=== PATIENT | female | born 1955 | race Caucasian/White ===

== ENCOUNTER → 2017-06-03 | Day surgery (SDC) | payer OTHER ==
[~2017-06-03] MED LIST: ADVAIR 250-501 EACH INH; AMITIZA8 MCG PO; DIAZEPAM10 MG PO; FENTANYL CITRATE/PF 100MCG/2 ML INJ ONE; IRBESARTAN150 MG PO; JENTADUETO 2.51 EAC2 PO; LIDOCAINE HCL 2% LOCAL INJ 5 ML SDV VIAL INJ ONE; MIDAZOLAM HCL 2 MG/2 ML VIAL ONE; MONTELUKAST SOD10 MG PO; NEXIUM40 M1 PO; PANTOPRAZOLE SO40 MG PO; PROAIR HFA INH8.5 GM INH; PROPOFOL IV EMULSION 10 MG/ML 50 ML VIAL ONE; SIMVASTATIN20 MG PO; SOMA350 MG PO; TRAMADOL-ACETAMI1 EA PO
--- NOTE | 2017-06-03 13:47 | Operative Report ---
DATE OF PROCEDURE: June 03, 2017 REFERRING PHYSICIAN: Ronny Rutherford MD PROCEDURE PERFORMED: Esophagogastroduodenoscopy with esophageal dilatation and biopsies. INDICATIONS FOR ESOPHAGOGASTRODUODENOSCOPY: Dysphagia to solids and liquids, history of heartburn and indigestion. MEDICATION: Patient was done under MAC. Please see anesthesiologist's note. PROCEDURE: With patient in left lateral decubitus position, flexible fiberoptic Olympus gastroscope was introduced into the esophagus under direct visualization without any difficulty. There was some patchy erythema noted in distal esophagus. A minute tongue of velvety red mucosa was noted to extend proximally from the GE junction and biopsies were obtained to rule out Otoole's. There was a mild stricture at the GE junction that was dilated to size 52-Turkmen Hernandez. The scope was then advanced with ease into the stomach traversing a small sliding hiatal hernia. Mucosa overlying the antrum and the body revealed some patchy intense erythema and moderate edema, and biopsies were obtained and sent to stain for H. pylori. Submucosal nodules also were noted mid-body along the lesser curvature and biopsies were obtained. The pylorus was of normal contour and shape, was intubated with ease, and the scope was advanced all the way to the 2nd portion of the duodenum. The scope was then withdrawn slowly. Mucosa overlying the proximal 2nd portion and duodenal bulb appeared to be within normal limits. The scope was then withdrawn back into the stomach and retroflexion mucosa overlying the fundus and the cardia appeared to be within normal limits. The scope was then straightened out. The stomach was decompressed. Scope was subsequently withdrawn. Patient tolerated the procedure well. IMPRESSION 1. Mild distal esophagitis. 2. Rule out Otoole's esophagus. 3. Esophageal stricture, gastroesophageal junction dilated to size 52-Turkmen Hernandez. 4. Small sliding hiatal hernia. 5. Gastritis, biopsied and biopsies sent to stain for H. Pylori. 6. Submucosal nodules mid-body lesser curvature, biopsied. PLAN: Follow up histology. Continue Protonix 40 mg 1 p.o. a.c. b.i.d.. Job#: [id number] COREY cc:Ronny Rutherford MD
== END | disposition home or self-care (01) ==
LOC: OR 09:15
PROVIDERS: ATTEND Internal Medicine Gastroenterology
DX: K22.2 Esophageal obstruction (principal); K29.50 Unspecified chronic gastritis without bleeding; K21.0 Gastro-esophageal reflux disease with esophagitis; K44.9 Diaphragmatic hernia without obstruction or gangrene; K31.89 Other diseases of stomach and duodenum; K58.9 Irritable bowel syndrome, unspecified; I10 Essential (primary) hypertension; J45.909 Unspecified asthma, uncomplicated; E11.9 Type 2 diabetes mellitus without complications; Z01.810 Encounter for preprocedural cardiovascular examination; Z68.29 Body mass index [BMI] 29.0-29.9, adult
CPT/HCPCS: 36415; 43239; 43450; 82948; 93005; J2001; J2250

== ENCOUNTER → 2018-05-19 | Day surgery (SDC) | payer OTHER ==
[2018-05-14 12:26] LABS: BASOPHILS # (AUTO) 0.1 (0.0-0.1); BASOPHILS % 0.7 % (0.0-1.0); EOSINOPHILS # (AUTO) 0.2 (0.0-0.4); EOSINOPHILS % 2.6 % (0.0-6.0); HEMATOCRIT 35.9 % (34.2-44.1); HEMOGLOBIN 10.5 g/dL (12.0-16.0); LYMPHOCYTES # (AUTO) 2.6 (1.0-3.2); LYMPHOCYTES % 29.2 % (18.0-39.1); MEAN CORPUSCULAR HEMOGLOBIN 23.7 pg (28-32); MEAN CORPUSCULAR HGB CONC 29.2 g/dL (31-35); MONOCYTES # (AUTO) 0.5 (0.2-0.8); MONOCYTES % 5.4 % (4.4-11.3); NEUTROPHILS # (AUTO) 5.4 (2.1-6.9); NEUTROPHILS % 61.9 % (38.7-80.0); PLATELET COUNT 305 x10e3/uL (140-360); RED BLOOD COUNT 4.43 x10e6/uL (3.6-5.1); RED CELL DISTRIBUTION WIDTH 15.5 % (11.7-14.4)
[~2018-05-19] MED LIST changes: +KOMBIGLYZE XR1 EAC2 PO; +ONDANSETRON HCL INJ 2MG/ML 2ML 2 MG/ML VIAL ONE; +SYMBICORT 16010.2 GM INH
--- OUTSIDE RECORDS SUMMARY | 2018-05-19 06:18 | XMS REPORT ---
Author Author [facility] Address Unknown Phone Unavailable Care Team Providers Care Asphalt Plant Worker Name Role Phone ANNIKA MCCURDY Unavailable Unavailable Problems This patient has no known problems. Allergies, Adverse Reactions, Alerts This patient has no known allergies or adverse reactions. Medications This patient has no known medications. Results Test Description Test Time Test Comments Text Results Atomic Results Result Comments POCT-GLUCOSE METER 2017-07-18 09:07:00 POC-GLUCOSE METER (SAVANAH) (test etny=1994) 125 mg/dL 70-[address] [facility] [address] [place] [id number]
--- OUTSIDE RECORDS SUMMARY | 2018-05-19 06:18 | XMS REPORT | Clinical Summary ---
Author Author MARIO [facility] Address Unknown Phone Unavailable Care Team Providers Care Trade Union Secretary Name Role Phone Ronny Rutherford PCP Allergies Comments Active Allergy Reactions Severity Noted Date Cephalexin Hives 04/20/2016 rash Latex Swelling 04/20/2016 Medications End Date Status Medication Sig Dispensed Refills Start Date Active DIAZEPAM ORAL Take by mouth 0 nightly . Active pantoprazole (PROTONIX) Take 40 mg by 0 40 MG tablet mouth daily. Active irbesartan (AVAPRO) 150 Take 150 mg 0 MG tablet by mouth nightly. Active simvastatin (ZOCOR) 20 MG Take 20 mg by 0 tablet mouth nightly. Active ALBUTEROL SULFATE (PROAIR Inhale by 0 HFA INHL) mouth via inhaler as needed . Active linagliptin-metFORMIN Take 1 tablet 0 (JENTADUETO XR) 2.5-1,000 by mouth 2 mg TBph (two) times daily . Active MONTELUKAST SODIUM Take by 0 (SINGULAIR ORAL) mouth. Active ondansetron (ZOFRAN-ODT) Take 8 mg by 0 8 MG disintegrating mouth 2 (two) tablet times daily as needed for Nausea. 07/18/2017 Discontinued diclofenac (VOLTAREN) 25 Take 25 mg by 0 MG EC tablet mouth 2 (two) times daily. 07/18/2017 Discontinued sucralfate (CARAFATE) 1 Take 1 g by 0 gram tablet mouth 4 (four) times daily. 07/14/2017 Discontinued Missing or Non-Formulary 0 Medication 07/18/2017 Discontinued traMADol (ULTRAM-ER) 100 Take 100 mg 0 MG 24 hr tablet by mouth daily. Active Problems Not on file Encounters Care Team Description Date Type Specialty Marvel Freeman MD 07/18/2017 Anesthesia Gastroenterology Event Rodrick Lopez MD UPPER ENDOSCOPY,FNA W/ULTRASOUND 07/18/2017 Surgery Gastroenterology Rodrick Lopez MD 07/18/2017 Hospital Gastroenterology Encounter Resource, [facility] Phone 07/14/2017 Hospital Pre-Admission Testing Encounter after 05/18/2017 Social History Date Tobacco Use Types Packs/Day Years Used Never Smoker Smokeless Tobacco: Never Used Alcohol Use Drinks/Week oz/Week Comments No Sex Assigned at Date Recorded Not on file Industry Job Start Date Occupation Not on file Not on file Not on file Travel End Travel History Travel Start No recent travel history available. Last Filed Vital Signs Time Taken Vital Sign Reading 07/18/2017 10:55 AM CDT Blood Pressure 112/77 07/18/2017 10:41 AM CDT Pulse 81 07/18/2017 10:55 AM CDT Temperature 36.1 C (97 F) 07/18/2017 10:55 AM CDT Respiratory Rate 18 07/18/2017 10:41 AM CDT Oxygen Saturation 96% - Inhaled Oxygen - Concentration 07/18/2017 9:10 AM CDT Weight 74.6 kg (164 lb 6.4 oz) 07/18/2017 9:10 AM CDT Height 152.4 cm (5') 07/18/2017 9:10 AM CDT Body Mass Index 32.11 Plan of Treatment Not on file Procedures Comments Procedure Name Priority Date/Time Associated Diagnosis REPORT OF PROCEDURE - 07/18/2017 ENDOSCOPY URL 10:54 AM CDT UPPER ENDOSCOPY,FNA 07/18/2017 Gastric nodule W/ULTRASOUND 9:30 AM CDT Special Needs (LINEAR SCOPE) POCT-GLUCOSE METER Routine 07/18/2017 9:05 AM CDT after 05/18/2017 Results * REPORT OF PROCEDURE - ENDOSCOPY URL (07/18/2017 10:54 AM CDT) Narrative Performed At * POC-Glucose meter (07/18/2017 9:05 AM CDT) POC-Glucose Meter 125 (H)Comment: TESTED AT 70 - 110 mg/dL [facility] [address] [facility] [id number] Specimen Blood Performing Organization Address City/State/Zipcode Phone Number [facility] [address] [place] [address] [facility] after 05/18/2017 Insurance Payer Benefit Subscriber ID Type Phone Address Plan / Group [employer] - MGD CARE CIGNA xxxxxxxxxxx HMO/POS HMO/POS/OP EN ACCESS
[2018-05-19 09:50] VITALS: BP 136/92
[2018-05-19 10:32] LABS: % IRON SATURATION 10 % (15-50); IRON 36 ug/dL (50-170); TOTAL IRON BINDING CAPACITY 356 ug/dL (261-478); TRANSFERRIN 254 mg/dL (180-382)
[2018-05-19 11:03] LABS: FOLATE 12.6 ng/mL (7.0-15.4)
--- NOTE | 2018-05-19 16:16 | Operative Report ---
DATE OF PROCEDURE: 05/19/2018 SURGEON: Jewel Delgadillo MD PROCEDURES: Esophagogastroduodenoscopy with esophageal dilatation and biopsies and colonoscopy with polypectomy. INDICATIONS FOR EGD: Dysphagia, anemia. INDICATIONS FOR COLONOSCOPY: Surveillance colonoscopy, personal history of colon polyps, anemia. MEDICATIONS: The patient was done under MAC. Please see anesthesiologist's note. PROCEDURE IN DETAIL: With the patient in the left lateral decubitus position, a flexible fiberoptic Olympus gastroscope was introduced into the esophagus under direct visualization without any difficulty. There was some patchy erythema noted in the distal esophagus. A minute tongue of velvety red mucosa was noted to extend proximally from the GE junction and biopsies were obtained in the recent past to rule out Otoole's and no biopsies were obtained at this time. The scope was then advanced with ease into the stomach traversing a mild stricture at the GE junction that was dilated to size 52-Austrian Hernandez. There was also a small sliding hiatal hernia. The mucosa overlying the antrum revealed some patchy intense erythema and moderate edema and biopsies were obtained from the antrum and the body. Submucosal nodules were noted in the upper body and those were also biopsied. Pylorus was intubated with ease and the scope was advanced all the way to the second portion of the duodenum. Biopsies were obtained from the proximal second portion to rule out sprue as well as from the duodenal bulb. The scope was then withdrawn back into the stomach and retroflexed and mucosa overlying the fundus and cardia appeared to be within normal limits. The scope was then straightened out. The stomach was decompressed. The scope was subsequently withdrawn. The patient tolerated the procedure well. IMPRESSION: 1. Distal esophagitis, mild. 2. ? Otoole's esophagus. 3. Mild stricture at gastroesophageal junction, dilated to size 52-Austrian Hernandez. 4. Small sliding hiatal hernia. 5. Gastritis, biopsied. Biopsies sent to stain for Helicobacter pylori. 6. Submucosal nodule, upper body, biopsied. 7. Rule out sprue. PLAN: Followup histology. Continue Protonix 40 mg one p.o. a.c. b.i.d. Add Carafate 1 g p.o. a.c. t.i.d. and at bedtime. PROCEDURE IN DETAIL: The patient was then turned around after adequate lubrication of the anal canal, a flexible fiberoptic Olympus colonoscope was inserted into the rectum and advanced all the way to the cecum. The scope was then withdrawn slowly and mucosa overlying the cecum, ascending colon, transverse colon, and descending colon appeared to be within normal limits. Diverticular disease was noted to involve the sigmoid colon. Four polyps were hot biopsied from the sigmoid colon. One polyp was hot biopsied from the rectum. The scope was then retroflexed into the distal rectum and the area around the dentate line appeared to be within normal limits. The scope was then straightened out and it was subsequently withdrawn. The patient tolerated the procedure well. IMPRESSION: 1. Diverticulosis. 2. Sigmoid colon polyps x4, hot biopsied. 3. Rectal polyp x1, hot biopsied. PLAN: Follow up histology. Initiate high-fiber, low-fat diet. Initiate high-fiber supplement. The patient might benefit from a followup colonoscopy in 3 to 5 years. Findings do no necessarily explain the patient's anemia. She will need small bowel series and if negative, she might benefit from an enteroscopy. MD SANDRA Arriaza/JOSE ALEJANDRO /[id number] cc: Ronny Rutherford MD
== END | disposition home or self-care (01) ==
LOC: OR 06:16
PROVIDERS: ATTEND Internal Medicine Gastroenterology
DX: Z12.11 Encounter for screening for malignant neoplasm of colon (principal); Z86.010 Personal history of colon polyps; R13.10 Dysphagia, unspecified; K20.9 Esophagitis, unspecified; D64.9 Anemia, unspecified; Z01.810 Encounter for preprocedural cardiovascular examination; Z01.812 Encounter for preprocedural laboratory examination; Z87.891 Personal history of nicotine dependence; K29.70 Gastritis, unspecified, without bleeding; Z87.19 Personal history of other diseases of the digestive system; I10 Essential (primary) hypertension; R13.19 Other dysphagia; K59.09 Other constipation; Z68.31 Body mass index [BMI] 31.0-31.9, adult; Z88.1 Allergy status to other antibiotic agents; Z91.040 Latex allergy status; K22.2 Esophageal obstruction; K44.9 Diaphragmatic hernia without obstruction or gangrene; K57.30 Diverticulosis of large intestine without perforation or abscess without bleeding; K63.5 Polyp of colon; K62.1 Rectal polyp; K31.89 Other diseases of stomach and duodenum
CPT/HCPCS: 36415 ×2; 43239; 43450; 45384; 82607; 82746; 82948; 83540; 84466; 85025; 85045; 93005; J2001; J2250; J2405; J2704

== ENCOUNTER 2019-04-16 10:58 | Inpatient (IN) | payer BC, OTHER ==
[~2019-04-16] VITALS: Ht 152.4 cm; Wt 69.9 kg
[~2019-04-16 10:58] MED LIST changes: -FENTANYL CITRATE/PF 100MCG/2 ML INJ ONE; -LIDOCAINE HCL 2% LOCAL INJ 5 ML SDV VIAL INJ ONE; -MIDAZOLAM HCL 2 MG/2 ML VIAL ONE; -ONDANSETRON HCL INJ 2MG/ML 2ML 2 MG/ML VIAL ONE; -PROPOFOL IV EMULSION 10 MG/ML 50 ML VIAL ONE
[2019-04-16] MEDS ORDERED: ONDANSETRON HCL INJ 2MG/ML 2ML 2 MG/ML VIAL IV STA ×2 (11:21→14:42)
[2019-04-16] MEDS ORDERED: SODIUM CHLORIDE 0.9% 1000ML 1,000 ML IV STA (11:21)
[2019-04-16] MEDS ORDERED: KETOROLAC TROMETHAMINE 30 MG/ML VIAL IV STA (11:21)
[2019-04-16] MEDS ORDERED: MORPHINE SULFATE 2 MG/ML SYR 1ML IV STA (11:21)
[2019-04-16 11:54] LABS: COLOR,URINE YELLOW (YELLOW)
[2019-04-16 11:55] LABS: CLARITY,URINE CLEAR (CLEAR); LEUKOCYTE ESTERASE ,URINE MODERATE (NEGATIVE); NITRITE,URINE POSITIVE (NEGATIVE); PROTEIN,URINE DIPSTICK NEGATIVE (NEGATIVE)
[2019-04-16 11:56] LABS: BILIRUBIN,URINE SMALL (NEGATIVE); KETONES,URINE NEGATIVE (NEGATIVE); URINE UROBILINOGEN 0.2 mg/dL (0.2 - 1)
[2019-04-16 12:06] LABS: BACTERIA,URINE FEW /HPF; EPITHELIAL CELLS,URINE FEW /LPF
--- NOTE | 2019-04-16 12:44 | Diagnostic Imaging Report ---
EXAMINATION: CT of the abdomen and pelvis without contrast. TECHNIQUE: Spiral CT images of the abdomen and pelvis were performed from the lung bases to the lesser trochanters. No intravenous contrast was given per renal stone protocol. Coronal and sagittal reformatted images were obtained. COMPARISON: None. CLINICAL HISTORY:Right flank pain, urinary frequency DISCUSSION: ABSENCE OF INTRAVENOUS CONTRAST DECREASES SENSITIVITY FOR DETECTION OF FOCAL LESIONS AND VASCULAR PATHOLOGY. ABDOMEN/PELVIS: LOWER THORAX: Unremarkable. HEPATOBILIARY:No focal hepatic lesion or intrahepatic biliary dilatation. The gallbladder has been removed. SPLEEN: No splenomegaly. PANCREAS: No focal masses or ductal dilatation. ADRENALS: No adrenal nodules. KIDNEYS/URETERS: Punctate nonobstructing left upper pole renal calculus. 3 mm nonobstructing left lower pole renal calculus. 4 mm distal right ureteral calculus results in moderate hydroureteronephrosis and perinephric fat stranding. No left ureteral or bladder calculi. PELVIC ORGANS/BLADDER: Urinary bladder is unremarkable. Uterus is not identified and has presumably been removed. No adnexal mass. PERITONEUM/RETROPERITONEUM: No ascites. No pneumoperitoneum or LYMPH NODES: No pelvic sidewall, retroperitoneal, or mesenteric lymphadenopathy. VESSELS: Atherosclerotic calcification of the abdominal aorta, branch vessels, and iliac arterial systems without aneurysmal dilatation. Otherwise limited evaluation in the absence of intravenous contrast. GI TRACT: The large bowel is notable for multiple diverticula scattered along the sigmoid colon without wall thickening or adjacent inflammatory change.. The appendix is normal. The stomach is collapsed with prominence of the rugal folds. Small hiatal hernia. No small bowel dilatation to suggest obstruction. BONES AND SOFT TISSUES: 1 cm sclerotic lesion in the left iliac wing likely represents an osteoma. No osseous destructive lesions. Degenerative disc changes and facet arthropathy of the lumbar spine. No focal soft tissue abnormalities. IMPRESSION: 4 mm distal right ureteral calculus results in moderate hydroureteronephrosis and perinephric inflammation. Nonobstructing left renal calculi as above. Incidental findings include atherosclerotic vascular disease, large bowel diverticulosis without evidence of diverticulitis, and a small hiatal hernia. Signed by: Dr. Jason Vidal M.D. on 04/16/2019 12:41 PM
[2019-04-16 13:55] LABS: BASOPHILS # (AUTO) 0.1 (0.0-0.1); BASOPHILS % 0.5 % (0.0-1.0); EOSINOPHILS # (AUTO) 0.1 (0.0-0.4); EOSINOPHILS % 0.6 % (0.0-6.0); HEMATOCRIT 32.1 % (34.2-44.1); HEMOGLOBIN 9.7 g/dL (12.0-16.0); LYMPHOCYTES % 10.3 % (18.0-39.1); MEAN CORPUSCULAR HEMOGLOBIN 23.7 pg (28-32); MEAN CORPUSCULAR HGB CONC 30.2 g/dL (31-35); MEAN CORPUSCULAR VOLUME 78.3 fL (81-99); MONOCYTES # (AUTO) 0.8 (0.2-0.8); MONOCYTES % 8.1 % (4.4-11.3); NEUTROPHILS # (AUTO) 7.4 (2.1-6.9); NEUTROPHILS % 80.1 % (38.7-80.0); PLATELET COUNT 374 x10e3/uL (140-360)
[2019-04-16 14:07] LABS: INR 1.25
[2019-04-16 14:08] LABS: PARTIAL THROMBOPLASTIN TIME 34.2 seconds (23.8-35.5)
[2019-04-16 14:14] LABS: ALBUMIN 2.9 g/dL (3.5-5.0); ALBUMIN/GLOBULIN RATIO 0.7 (0.8-2.0); ANION GAP 17.3 mmol/L (8-16); CALCIUM 9.3 mg/dL (8.4-10.2); CREATININE, SERUM 1.29 mg/dL (0.57-1.11); POTASSIUM 4.3 mmol/L (3.5-5.1)
[2019-04-16] MEDS ORDERED: MORPHINE SULFATE 2 MG/ML SYR 1ML IV PRN (15:00)
[2019-04-16] MEDS: SODIUM CHLORIDE 0.9% 1000ML 1,000 ML IV SCH ×2 (16:03→22:51)
[2019-04-16] MEDS: PIPER-TAZ 3.375 GM 50 ML IV SCH ×2 (16:03→21:07)
--- NOTE | 2019-04-16 17:50 | NUR ---
RECEIVED PATIENT FROM ER. PATIENT A/O X3, EVEN RESPIRATIONS ON RA. LUNG SOUNDS CLEAR TO AUSCULTATION. BOWEL SOUNDS PRESENT. FLANK PAIN 8/10, PRN MORPHINE AVAILABLE. LEFT AC 20 GAUGE IV WITH NS @ 100CC/HR. STRAINING URINE WITH EACH VOID. TELEMETRY #20 SR 75. ORIENTED PATIENT TO ROOM AND CALL LIGHT. BED LOW, WHEELS LOCKED, SIDE RAILS X2. CALL LIGHT IN REACH WILL CONTINUE TO MONITOR PATIENT.
[2019-04-16 18:08] VITALS: BP 150/88
[2019-04-16 18:17] VITALS: BP 150/88
[2019-04-16 18:35] VITALS: BP 150/88
[2019-04-16] MEDS: MORPHINE SULFATE INJ 4 MG/ML INJ 1ML IV PRN (20:10)
[2019-04-16] MEDS: ONDANSETRON HCL INJ 2MG/ML 2ML 2 MG/ML VIAL IV PRN (20:10)
[2019-04-16 21:00] VITALS: BP 128/64
[2019-04-16] MEDS ORDERED: JANUVIA100 MG PO (21:13)
[2019-04-16] MEDS ORDERED: METFORMIN HCL500 MG PO (21:13)
[2019-04-16] MEDS ORDERED: IRBESARTAN 150 MG TAB PO ONE (22:45)
[2019-04-16] MEDS ORDERED: DIAZEPAM 5 MG TAB PO ONE (22:45)
[2019-04-16] MEDS ORDERED: SIMVASTATIN 20 MG TAB PO ONE (22:45)
[2019-04-16] MEDS ORDERED: MONTELUKAST SODIUM 10 MG TAB PO ONE (22:45)
--- NOTE | 2019-04-16 23:40 | Consultation ---
DATE OF CONSULTATION: 04/16/2019 Urology Consultation REASON FOR CONSULTATION: Obstructive uropathy. HISTORY OF PRESENT ILLNESS: Brianne Cheema is a 63-year-old woman without any previous urological evaluation. The patient had severe right-sided flank pain, radiating to the right groin, thus she developed nausea and vomiting. She denies ever having any fever. She denies ever having hematuria. The patient has had urinary tract infections. She has both stress and urge type urinary incontinence, but they are not severe enough to wear pads on daily basis at this time. The patient reported in the emergency room was found to have obstructive uropathy and urological consultation was sought. PAST MEDICAL AND SURGICAL HISTORY: 1. 2, para 2 by section. 2. Status post total abdominal hysterectomy, bilateral salpingo-oophorectomy. 3. Status post cholecystectomy. 4. Status post left rotator cuff repair. 5. Status post ORIF of the left foot due to fracture. 6. Status post fusion of two cervical vertebra. 7. Hypertension. 8. Diabetes mellitus. 9. Hypercholesterolemia. ALLERGIES: CEPHALEXIN AND LATEX. CURRENT MEDICATIONS: Please refer to the MAR. SOCIAL HISTORY: The patient was smoked only when she was a teenager. Denies smoking, ethanol drug use. She works at a storage facility in the office. FAMILY HISTORY: Significant for urolithiasis in the patient's mother. REVIEW OF SYSTEMS: Discussed as above in the history of present illness, past medical history, otherwise negative for all systems. PHYSICAL EXAMINATION: GENERAL: Healthy-appearing 63-year-old woman lying in bed, in no apparent distress, she is currently afebrile. VITAL SIGNS: Currently stable. ABDOMEN: Soft, nondistended, nontender except for the right flank. She also has right-sided costovertebral angle tenderness. Kidneys not palpable without hepatosplenomegaly. No obvious evidence of hernia. For the remaining physical examination systems, please refer to the admission history and physical in the chart. LABORATORY STUDIES: The patient's creatinine is elevated at 1.29. Her calcium is normal at 9.3. White blood cell count is 9290, hemoglobin 9.7, platelets 374,000. The patient's urinalysis shows 6-10 rbc's, 6-10 wbc's and nitrite positive urine. Urine culture is pending. CT scan of the abdomen and pelvis was performed without contrast. It revealed a 4 mm distal right ureteral stone with right hydroureteronephrosis and a 3 mm nonobstructing left lower pole stone. ASSESSMENT: 1. Left nephrolithiasis. 2. Right ureterolithiasis. 3. Right hydroureteronephrosis. 4. Nausea and vomiting that are improved. 5. Urinary tract infections. 6. Mixed type urinary incontinence. 7. Family history of urolithiasis. 8. Anemia. 9. Presumably acute renal failure. 10. Microscopic hematuria. PLAN: 1. Intravenous antibiotics. 2. Intravenous hydration. 3. Ambulation. 4. Strain all the urine and hopefully the patient will pass her stone. 5. I will order KUB for the morning. 6. We will plan to follow up on the patient's laboratory studies in the morning. 7. Should the patient fail to pass her stone, surgical intervention with ureteroscopy and stenting would be required. We will allow the patient ample opportunity to pass her stone prior to intervening surgically. Once the patient's episode is resolved, we will follow her up exterminator helper termite to perform metabolic stone workup in hopes of preventing her left stone from becoming clinically significant, also we will work on the patient's incontinence when she is back into her usual state of health. Thank you much for involving us in care of your patient. We will be happy to follow along with you as well as an outpatient. Win Hansen MD [place]/MODL /[id number] cc: Jorge Delgadillo MD
--- NOTE | 2019-04-16 23:48 | Diagnostic Imaging Report ---
EXAM: ABDOMEN-1VIEW (KUB), DATE: 04/16/2019 10:00 PM INDICATION: Follow-up ureteral stone COMPARISON: None. Correlation with CT abdomen pelvis dated 04/16/2019. FINDINGS: LINES/TUBES: None BOWEL PATTERN: No evidence for obstruction. SOFT TISSUES: Vascular calcifications in the pelvis. Subtle 4 mm calcific density projected on the right hemipelvis may represent ureteral calculus identified on CT examination performed earlier on the same day. Reflect left Cholecystectomy clips. LUNG BASES: Clear. BONES: No acute findings. 1.4 cm oval hyperdensity projected on the left ilium. IMPRESSION: Subtle 4 mm calcific density projected on the right hemipelvis may represent ureteral calculus identified on CT examination performed earlier on the same day. Signed by: Dr. Barbara Saldaña M.D. on 04/16/2019 11:45 PM
[2019-04-17] VITALS (9 sets, daily range): BP systolic 101–138; BP diastolic 52–64
[2019-04-17] MEDS: MORPHINE SULFATE INJ 4 MG/ML INJ 1ML IV PRN ×5 (00:10→21:52)
[2019-04-17] MEDS: ONDANSETRON HCL INJ 2MG/ML 2ML 2 MG/ML VIAL IV PRN ×5 (00:10→21:52)
[2019-04-17] MEDS: PIPER-TAZ 3.375 GM 50 ML IV SCH ×4 (02:59→21:15)
[2019-04-17 06:11] LABS: BASOPHILS # (AUTO) 0.1 (0.0-0.1); BASOPHILS % 0.7 % (0.0-1.0); EOSINOPHILS # (AUTO) 0.1 (0.0-0.4); EOSINOPHILS % 1.7 % (0.0-6.0); HEMATOCRIT 27.9 % (34.2-44.1); HEMOGLOBIN 8.1 g/dL (12.0-16.0); LYMPHOCYTES # (AUTO) 1.3 (1.0-3.2); MEAN CORPUSCULAR HEMOGLOBIN 23.1 pg (28-32); MEAN CORPUSCULAR VOLUME 79.5 fL (81-99); MONOCYTES # (AUTO) 0.8 (0.2-0.8); MONOCYTES % 9.3 % (4.4-11.3); NEUTROPHILS % 71.9 % (38.7-80.0); PLATELET COUNT 365 x10e3/uL (140-360); RED BLOOD COUNT 3.51 x10e6/uL (3.6-5.1); RED CELL DISTRIBUTION WIDTH 15.3 % (11.7-14.4)
[2019-04-17 06:33] LABS: ANION GAP 14.5 mmol/L (8-16); CALCIUM 8.2 mg/dL (8.4-10.2); CREATININE, SERUM 1.37 mg/dL (0.57-1.11); POTASSIUM 3.5 mmol/L (3.5-5.1)
[2019-04-17] MEDS: SODIUM CHLORIDE 0.9% 1000ML 1,000 ML IV SCH ×3 (06:45→21:38)
--- NOTE | 2019-04-17 07:30 | NUR ---
Received patient this morning and alert and responsive, no resp distress, pains well managed and call light within reach, will monitor. Report received and rounds completed.
[2019-04-17] MEDS: METFORMIN HCL 500 MG TAB PO SCH (08:00)
[2019-04-17] MEDS: SITAGLIPTIN 100 MG TAB PO SCH (08:45)
[2019-04-17] MEDS: PANTOPRAZOLE SOD 40 MG TABEC PO SCH (08:45)
[2019-04-17] MEDS ORDERED: DIAZEPAM 5 MG TAB PO SCH (09:00)
[2019-04-17] MEDS ORDERED: METFORMIN HCL 500 MG TAB PO SCH (09:00)
--- NOTE | 2019-04-17 19:09 | NUR ---
Rounds completed, report given to on coming nurse, patient stable.
--- NOTE | 2019-04-17 20:40 | NUR ---
Assessment done.no resp.distress.pain voiced 10/20.stable condition.bed locked and in lowest position.phone and call light within reach.instructed to call for assistance as needed.
[2019-04-17] MEDS: IRBESARTAN 150 MG TAB PO SCH (21:00)
[2019-04-17] MEDS: MONTELUKAST SODIUM 10 MG TAB PO SCH (21:16)
[2019-04-17] MEDS: SIMVASTATIN 20 MG TAB PO SCH (21:16)
[2019-04-17] MEDS: DIAZEPAM 5 MG TAB PO SCH (21:38)
[2019-04-18] VITALS (8 sets, daily range): BP systolic 101–138; BP diastolic 57–74
[2019-04-18] MEDS: MORPHINE SULFATE INJ 4 MG/ML INJ 1ML IV PRN ×4 (02:14→21:02)
[2019-04-18] MEDS: ONDANSETRON HCL INJ 2MG/ML 2ML 2 MG/ML VIAL IV PRN ×4 (02:14→21:02)
[2019-04-18] MEDS: PIPER-TAZ 3.375 GM 50 ML IV SCH ×4 (02:52→20:49)
--- NOTE | 2019-04-18 02:52 | NUR ---
NEW IV STARTED TO RIGHT F.ARM #20G.PATENT.
--- NOTE | 2019-04-18 05:00 | NUR ---
Assisted the patient to use rest room.voided.had a small bowelmovement.patient is back to bed safely. Addendum: 04/18/19 at 0621 by Teodoro Cuellar RN error
--- NOTE | 2019-04-18 07:00 | NUR ---
Bed side shift report given to oncoming Rn.stable condition.
[2019-04-18] MEDS: SODIUM CHLORIDE 0.9% 1000ML 1,000 ML IV SCH ×3 (07:10→20:49)
[2019-04-18] MEDS: METFORMIN HCL 500 MG TAB PO SCH (08:00)
[2019-04-18] MEDS: PANTOPRAZOLE SOD 40 MG TABEC PO SCH (09:52)
[2019-04-18] MEDS: SITAGLIPTIN 100 MG TAB PO SCH (09:52)
[2019-04-18] MEDS: DIAZEPAM 5 MG TAB PO SCH ×2 (09:52→20:49)
--- NOTE | 2019-04-18 09:52 | NUR ---
Patient signed consent for procedure to be done tomorrow, will be NPO from midnight.
[2019-04-18] MEDS ORDERED: LACTULOSE SYRUP 20 GM/30 ML UDC PO NR (16:45)
[2019-04-18] MEDS: IRBESARTAN 150 MG TAB PO SCH (20:49)
[2019-04-18] MEDS: SIMVASTATIN 20 MG TAB PO SCH (20:49)
[2019-04-18] MEDS: MONTELUKAST SODIUM 10 MG TAB PO SCH (21:01)
[2019-04-18] MEDS: ALBUTEROL SULFATE HFA 8GM INHALATION AEROSOL INH PRN (23:10)
[2019-04-19] VITALS (8 sets, daily range): BP systolic 105–129; BP diastolic 61–83
--- NOTE | 2019-04-19 01:07 | NUR ---
MAINTAINING NPO FOR PROCEDURE.RESTING COMFORTABLY .BED LOCKED AND IN LOWEST POSITION.PHONE AND CALL LIGHT WITHIN REACH.
[2019-04-19] MEDS: PIPER-TAZ 3.375 GM 50 ML IV SCH ×4 (02:58→20:56)
[2019-04-19] MEDS: ONDANSETRON HCL INJ 2MG/ML 2ML 2 MG/ML VIAL IV PRN ×4 (03:19→17:47)
[2019-04-19] MEDS: MORPHINE SULFATE INJ 4 MG/ML INJ 1ML IV PRN ×4 (03:19→17:45)
[2019-04-19 06:07] LABS: BASOPHILS % 0.6 % (0.0-1.0); EOSINOPHILS # (AUTO) 0.2 (0.0-0.4); EOSINOPHILS % 2.4 % (0.0-6.0); HEMATOCRIT 26.9 % (34.2-44.1); HEMOGLOBIN 7.6 g/dL (12.0-16.0); LYMPHOCYTES # (AUTO) 1.7 (1.0-3.2); LYMPHOCYTES % 25.6 % (18.0-39.1); MEAN CORPUSCULAR HEMOGLOBIN 23.4 pg (28-32); MEAN CORPUSCULAR HGB CONC 28.3 g/dL (31-35); MEAN CORPUSCULAR VOLUME 82.8 fL (81-99); MONOCYTES # (AUTO) 0.6 (0.2-0.8); NEUTROPHILS # (AUTO) 4.1 (2.1-6.9); NEUTROPHILS % 61.9 % (38.7-80.0); PLATELET COUNT 507 x10e3/uL (140-360); RED BLOOD COUNT 3.25 x10e6/uL (3.6-5.1); RED CELL DISTRIBUTION WIDTH 15.3 % (11.7-14.4)
[2019-04-19] MEDS: SODIUM CHLORIDE 0.9% 1000ML 1,000 ML IV SCH ×3 (06:14→23:15)
[2019-04-19] MEDS: ALBUTEROL SULFATE HFA 8GM INHALATION AEROSOL INH PRN (06:27)
[2019-04-19 06:36] LABS: ANION GAP 11.8 mmol/L (8-16); CALCIUM 8.2 mg/dL (8.4-10.2); CREATININE, SERUM 1.09 mg/dL (0.57-1.11); POTASSIUM 3.8 mmol/L (3.5-5.1)
--- NOTE | 2019-04-19 07:00 | NUR ---
BED SIDE SHIFT REPORT GIVEN TO ONCOMING RN.STABLE CONDITION.
[2019-04-19 07:27] LABS: HYPOCHROMASIA SLIGHT; PLATELET MORPHOLOGY COMMENT NORMAL; RBC MORPHOLOGY COMMENT NORMAL
[2019-04-19 07:28] LABS: PLATELET ESTIMATE MODERATELY INCREASED
[2019-04-19] MEDS: METFORMIN HCL 500 MG TAB PO SCH (08:00)
[2019-04-19] MEDS: DIAZEPAM 5 MG TAB PO SCH ×2 (08:26→20:56)
[2019-04-19] MEDS: SITAGLIPTIN 100 MG TAB PO SCH (08:26)
[2019-04-19] MEDS: PANTOPRAZOLE SOD 40 MG TABEC PO SCH (08:26)
--- NOTE | 2019-04-19 09:35 | NUR ---
Visit made by SURJIT Mike. Jet Worker provided pastoral presence, hospitality, and supportive listening. Jet Worker informed pt/family of the scope of Table Assembler Services and availability. PETTY REEVES Jet Worker Spiritual Care Department O: [phone] Pager: [phone] ([phone] number calling from)
[2019-04-19] MEDS ORDERED: IOPAMIDOL 300MG/ML 50ML INFUS..BTL IV ONE (10:28)
[2019-04-19] MEDS ORDERED: B&O 60MG R/S 60 MG SUPP PR ONE (10:29)
--- NOTE | 2019-04-19 10:45 | NUR ---
Patient picked up for procedure
--- NOTE | 2019-04-19 12:20 | NUR ---
Patient returned from cystoscopy, right stents placed with stone extraction, VSS and patient in bed, stable, voiding, will monitor.
[2019-04-19] MEDS ORDERED: FENTANYL CITRATE/PF 100MCG/2 ML INJ ONE (16:01)
[2019-04-19] MEDS ORDERED: PROPOFOL IV EMULSION 10 MG/ML 20 ML VIAL ONE (18:11)
[2019-04-19] MEDS ORDERED: LIDOCAINE HCL 2% LOCAL INJ 5 ML SDV VIAL INJ ONE (18:11)
[2019-04-19] MEDS ORDERED: DEXAMETHASONE SOD PHOS INJ 4 MG/ML VIAL ONE (18:11)
[2019-04-19] MEDS ORDERED: ONDANSETRON HCL INJ 2MG/ML 2ML 2 MG/ML VIAL ONE (18:11)
[2019-04-19] MEDS ORDERED: SEVOFLURANE INHAL SOLN 250 ML PEN BTL ONE (18:11)
[2019-04-19] MEDS ORDERED: EPHEDRINE SULFATE INJ 50 MG/ML VIAL ONE (18:11)
--- NOTE | 2019-04-19 19:05 | NUR ---
Report given to on coming nurse and rounds completed. Call light within reach and safety maintained.
--- NOTE | 2019-04-19 19:07 | NUR ---
RECEIVED THE PATIENT IN REPORT.LYEING IN THE BED.IV FLUID RUNNING.STABLE CONDITION.BED LOCKED AND IN LOWEST POSITION.PHONE AND CALL LIGHT WITHIN REACH.INSTRUCTED TO CALL FOR ASSISTANCE NEEDED.
[2019-04-19] MEDS: IRBESARTAN 150 MG TAB PO SCH (20:56)
[2019-04-19] MEDS: MONTELUKAST SODIUM 10 MG TAB PO SCH (20:56)
[2019-04-19] MEDS: SIMVASTATIN 20 MG TAB PO SCH (20:56)
[2019-04-20] MEDS: MORPHINE SULFATE INJ 4 MG/ML INJ 1ML IV PRN ×2 (00:10→06:36)
[2019-04-20] MEDS: ONDANSETRON HCL INJ 2MG/ML 2ML 2 MG/ML VIAL IV PRN ×2 (00:10→06:35)
[2019-04-20 00:35] VITALS: BP 140/60
[2019-04-20] MEDS: PIPER-TAZ 3.375 GM 50 ML IV SCH ×2 (02:41→08:49)
--- NOTE | 2019-04-20 04:14 | NUR ---
Assisted to use rest room.voided.back to bed safely.
[2019-04-20 05:34] VITALS: BP 104/57
[2019-04-20] MEDS: SODIUM CHLORIDE 0.9% 1000ML 1,000 ML IV SCH (06:24)
--- NOTE | 2019-04-20 06:58 | NUR ---
Bed side shift report given to oncoming Rn.stable condition.
[2019-04-20] MEDS: METFORMIN HCL 500 MG TAB PO SCH (08:49)
[2019-04-20] MEDS: SITAGLIPTIN 100 MG TAB PO SCH (08:49)
[2019-04-20] MEDS: PANTOPRAZOLE SOD 40 MG TABEC PO SCH (08:49)
[2019-04-20] MEDS: DIAZEPAM 5 MG TAB PO SCH (08:50)
[2019-04-20 08:51] VITALS: BP 109/71
[2019-04-20 12:42] VITALS: BP 112/74
--- NOTE | 2019-04-20 15:41 | NUR ---
pt has remained stable. MD dietz to dc. pt to f/u in month urology. rx given. verbalized understanding
[2019-05-23] MEDS ORDERED: OXYBUTYNIN CHLOR5 MG PO (11:52)
[2019-05-23] MEDS ORDERED: JANUMET XR 1001 EACH PO (11:53)
--- NOTE | 2019-05-27 09:18 | Operative Report ---
DATE OF PROCEDURE: 04/19/2019 SURGEON: Win Hansen MD PREOPERATIVE DIAGNOSES: 1. Right ureteral stone. 2. Right hydronephrosis due to stone. 3. Urinary tract infection. 4. Microscopic hematuria. POSTOPERATIVE DIAGNOSES: 1. Right ureteral stone. 2. Right hydronephrosis due to stone. 3. Urinary tract infection. 4. Microscopic hematuria. 5. Right ureteral stricture. 6. Mixed type urinary incontinence. 7. Grade 1 rectocele. 8. Atrophic (senile) vaginitis. OPERATIONS PERFORMED: 1. Cystourethroscopy with bilateral ureteral catheterization and retrograde ureteropyelography (separate procedure performed for the hematuria and urinary tract infections). 2. Interpretation of retrograde ureteropyelography. 3. Supervision of fluoroscopy, no radiologist present. 4. Right ureteroscopy with dilation of stricture (separate procedure performed for the diagnosis of the right ureteral stricture). 5. Right ureteroscopy with stone manipulation and extraction (separate procedure performed for the right ureterolithiasis). 6. Radiological services for supervision and interpretation of ureteroscopy. 7. Pelvic examination under anesthesia. 8. Cystourethroscopy with insertion of right indwelling ureteral stent (separate procedure performed to relieve the hydronephrosis). ANESTHESIA: General. COMPLICATIONS: None. CLINICAL SUMMARY: Brianne Cheema is a 63-year-old woman with the above preoperative diagnoses. She was brought for the above procedures. She is aware of the risks of bleeding, infection, injury to adjacent structures, need for additional procedures and elected to proceed. OPERATIVE PROCEDURE IN DETAIL: Informed consent was verified, Brianne Cheema was properly identified and taken to the operating room, placed on the cystoscopy table in supine position. Anesthesia was uneventfully begun. The patient was then carefully gently repositioned in the dorsal lithotomy position with all pressure points well padded. Her genitalia were prepared and draped in usual sterile fashion. The cystoscope sheath with obturator in place was atraumatically inserted patient's urethra and bladder was drained. Panendoscopy in her bladder revealed no suspicious mucosal lesions, no tumors, and no stones. Normally positioned configured ureteral orifices were identified. The ureteral catheter was used to cannulate the left ureter and retrograde ureteral pyelograms performed, it was then inserted in the right ureter. Contrast was injected. The guidewire was then placed. Semi-rigid ureteroscope was then placed alongside the guidewire and guided into the patient's right ureter. There we identified the stone. The stone was grasped with a 4-wire basket, and it was atraumatically extracted. A semi-rigid ureteroscope was then reinserted, and just proximal to the region of the stone, we identified a ureteral stricture. We gently dilated across the stricture utilizing the ureteroscope, and approximate to that the ureter was dilated. With cystoscopic and fluoroscopic guidance, a 7-Greenlandic x 22 cm indwelling ureteral stent was then placed, it was coiled in the patient's kidney as well as the patient's bladder. Retaining suture was cut short. Interpretation of retrograde ureteropyelography contrast was instilled in retrograde fashion bilaterally. The left side was unremarkable. There were no tumors and that could not visualize the punctate upper pole stone and a 3 mm lower pole stone. The right-hand side exhibited hydroureteronephrosis, filling defects corresponding to the stone and the stent was in good position, coiled the patient's kidneys as well as the patient's bladder. The patient's bladder was drained. Cystoscope was withdrawn. Pelvic examination revealed a grade 1 rectocele and atrophic (senile) vaginitis. No suspicious mucosal lesions were identified. There were no obvious mucosal lesions. The patient was then uneventfully reversed from anesthesia and taken to recovery room in good and stable condition. There were no complications to the procedure, she tolerated the procedure well. PLANS: Plans will be to return the patient to the operating room to remove her stent, perform right ureteroscopy and hopefully render the patient stent free and stone free on the right-hand side. Ongoing lifelong urological followup is a must include metabolic stone workup. MD MARTA Lopez/JOSE ALEJANDRO /[id number]
== END 2019-04-20 15:53 | disposition home or self-care (01) | DRG 661 ==
LOC: ER 10:58 → ERHOLD 14:56 → MED/SURG 17:21
PROC: BT141ZZ Fluoroscopy of Kidneys, Ureters and Bladder using Low Osmolar Contrast (ICD-10-PCS; 2019-04-19)
PROC: 0T7D8ZZ Dilation of Urethra, Via Natural or Artificial Opening Endoscopic (ICD-10-PCS; 2019-04-19)
PROC: 0T768DZ Dilation of Right Ureter with Intraluminal Device, Via Natural or Artificial Opening Endoscopic (ICD-10-PCS; principal; 2019-04-19 13:30)
PROC: 0TC68ZZ Extirpation of Matter from Right Ureter, Via Natural or Artificial Opening Endoscopic (ICD-10-PCS; 2019-04-19 13:30)
DX: N13.2 Hydronephrosis with renal and ureteral calculous obstruction (principal); N39.0 Urinary tract infection, site not specified; N17.9 Acute kidney failure, unspecified; R31.29 Other microscopic hematuria; D64.9 Anemia, unspecified; E66.9 Obesity, unspecified; Z68.30 Body mass index [BMI] 30.0-30.9, adult; N39.46 Mixed incontinence; N81.6 Rectocele; N35.92 Unspecified urethral stricture, female; N95.2 Postmenopausal atrophic vaginitis
CPT/HCPCS: 36415; 74018; 74176; 74420; 80048; 80053; 81001; 82948; 83970; 84550; 85025; 85610; 85730; 87086; 87186; 88300; 93005; 94664; 99284; C1758; C2617; J1100; J1885; J2001; J2270; J2405; J2543; J3010; J7030

== ENCOUNTER → 2019-05-25 | Day surgery (SDC) | payer BC ==
[2019-05-23 11:51] LABS: BASOPHILS # (AUTO) 0.1 (0.0-0.1); BASOPHILS % 1.2 % (0.0-1.0); EOSINOPHILS # (AUTO) 0.4 (0.0-0.4); EOSINOPHILS % 5.4 % (0.0-6.0); HEMATOCRIT 38.9 % (34.2-44.1); HEMOGLOBIN 11.3 g/dL (12.0-16.0); LYMPHOCYTES # (AUTO) 1.9 (1.0-3.2); LYMPHOCYTES % 25.5 % (18.0-39.1); MEAN CORPUSCULAR HEMOGLOBIN 23.3 pg (28-32); MEAN CORPUSCULAR VOLUME 80.4 fL (81-99); MONOCYTES # (AUTO) 0.4 (0.2-0.8); MONOCYTES % 5.5 % (4.4-11.3); NEUTROPHILS # (AUTO) 4.6 (2.1-6.9); NEUTROPHILS % 62.1 % (38.7-80.0); PLATELET COUNT 307 x10e3/uL (140-360); RED BLOOD COUNT 4.84 x10e6/uL (3.6-5.1); RED CELL DISTRIBUTION WIDTH 15.7 % (11.7-14.4)
--- NOTE | 2019-05-23 12:29 | Diagnostic Imaging Report ---
EXAMINATION: CHEST 2 VIEWS INDICATION: Pre-operative COMPARISON: Chest A 2011 FINDINGS: LINES/TUBES:None LUNGS:The lungs are well-inflated. No focal consolidation or pulmonary edema. PLEURA:No pleural effusion or pneumothorax. MEDIASTINUM:The cardiomediastinal silhouette appears normal in size and shape. Atherosclerotic calcifications of the thoracic aorta. BONES/SOFT TISSUES:No acute osseous injury. ABDOMEN:No free air under the diaphragm. IMPRESSION: No focal pneumonia or pulmonary edema. Signed by: Peg Ware MD on 05/23/2019 12:26 PM
--- NOTE | 2019-05-23 12:30 | Diagnostic Imaging Report ---
Exam: KUB - 2 views Indication: Preoperative Comparison: KUB to 04/16/2019 Findings: Right internal nephroureteral stent in place. No radiographically apparent renal calculi. Status post cholecystectomy. Nonobstructive bowel gas pattern. No free air. No acute osseous injury. Impression: Right internal nephroureteral stent in place. No radiographically apparent renal calculi. Signed by: Peg Ware MD on 05/23/2019 12:28 PM
[2019-05-23 12:31] LABS: ANION GAP 10.1 mmol/L (8-16); BLOOD UREA NITROGEN 14 mg/dL (7-26); BUN/CREATININE RATIO 16 (6-25); CALCIUM 9.9 mg/dL (8.4-10.2); CARBON DIOXIDE 28 mmol/L (22-29); CHLORIDE 105 mmol/L (98-107); CREATININE, SERUM 0.85 mg/dL (0.57-1.11); EST GLOMERULAR FILTRATION RATE > 60 ML/MIN (60-); GLUCOSE 164 mg/dL (74-118); POTASSIUM 4.1 mmol/L (3.5-5.1); SODIUM 139 mmol/L (136-145)
[~2019-05-25] MED LIST changes: +B&O 60MG R/S 60 MG SUPP PR ONE; +DEXAMETHASONE SOD PHOS INJ 4 MG/ML VIAL ONE; +FENTANYL CITRATE/PF 100MCG/2 ML INJ ONE; +HYDROMORPHONE 1MG/1ML INJ ONE; +IOPAMIDOL 300MG/ML 50ML INFUS..BTL IV ONE; +JANUMET XR 1001 EACH PO; +JANUVIA100 MG PO; +LEVOFLOXACIN 500MG/D5W 100ML 100 ML IV ONE; +LIDOCAINE HCL 2% LOCAL INJ 5 ML SDV VIAL INJ ONE; +METFORMIN HCL500 MG PO; +MIDAZOLAM HCL 2 MG/2 ML VIAL ONE; +MORPHINE SULFATE 2 MG/ML SYR 1ML ONE; +ONDANSETRON HCL INJ 2MG/ML 2ML 2 MG/ML VIAL ONE; +OXYBUTYNIN CHLOR5 MG PO; +PROPOFOL IV EMULSION 10 MG/ML 20 ML VIAL ONE; +SEVOFLURANE INHAL SOLN 250 ML PEN BTL ONE
--- NOTE | 2019-05-25 09:06 | Operative Report ---
DATE OF PROCEDURE: 05/25/2019 SURGEON: Win Hansen MD PREOPERATIVE DIAGNOSES: 1. Right indwelling ureteral stent. 2. History of right ureteral stricture. 3. History of right ureterolithiasis. POSTOPERATIVE DIAGNOSES: 1. Right indwelling ureteral stent. 2. History of right ureteral stricture. 3. History of right ureterolithiasis. 4. Grade 1 rectocele. 5. Grade 1 cystocele. 6. 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 OPERATIONS PERFORMED: 1. Cystourethroscopy with complicated removal of right indwelling ureteral stent (separate procedure performed with separate scope for the diagnosis of stent). 2. Right semi-rigid and flexible ureteropyeloscopy (separate procedure performed to evaluate the ureter in light of the urolithiasis history and ureteral stricture). 3. Interpretation of retrograde ureteropyelography. 4. Supervision of fluoroscopy, no radiologist present. 5. Radiological services with supervision and interpretation of ureteroscopy. 6. Pelvic examination under anesthesia. ANESTHESIA: General. COMPLICATIONS: None. CLINICAL SUMMARY: Brianne Cheema is a 63-year-old woman with the above preoperative diagnoses. She was brought to remove her stent and evaluate for any residual stones. She is aware of the risks of bleeding, infection, injury to adjacent structures, need for additional procedures, and elected to proceed. OPERATIVE PROCEDURE IN DETAIL: Informed consent was verified. Brianne Cheema was properly identified, taken to the operating room, placed on the cystoscopy table in supine position. Anesthesia was uneventfully begun. The patient was then carefully and gently repositioned in the dorsal lithotomy position with all pressure points well padded. Her genitalia were prepared and draped in usual sterile fashion. The cystoscope sheath was inserted in the patient's urethra and the bladder was drained. Panendoscopy of the bladder revealed no suspicious mucosal lesions, no tumors, no stones, and no diverticula, normally positioned configured ureteral orifices were identified. There was a stent emerging from the right ureteral orifice with only minimal inflammation of the mucosa around it. Guidewire was then placed alongside the stent and guided to the level of the patient's kidney. The stent was then grasped, completely removed, and discarded. A semi-rigid ureteroscope was then placed alongside the guidewire and guided to the level of the proximal ureter. We passed through the previous location of the ureteral stricture, which appeared to be open at this time. The semi-rigid ureteroscope was withdrawn and flexible ureteroscope was then placed over the guidewire and guided to the level of the patient's kidney. Panendoscopy with intrarenal collecting system revealed Kwadwo's plaques, but no tumors, no stones, no diverticula, no suspicious mucosal lesions were identified. We carefully examined the ureter as we exited. The ureteral stricture region was again examined and it was open. Interpretation of retrograde ureteropyelography contrast was instilled in a retrograde fashion on the right-hand side by the ureteroscope. There was chronic appearing fullness of the right kidney. The ureter was slightly dilated. Nevertheless, unobstructed drainage was observed fluoroscopically. The patient's bladder was drained and cystoscope was withdrawn. Pelvic examination revealed atrophic (senile) vaginitis with vaginal os stenosis with a grade 1 cystocele, grade 1 rectocele. No abnormal palpable pelvic masses could be appreciated. There were no obvious mucosal lesions. The patient was then uneventfully reversed from anesthesia and taken to recovery room in stable condition. There were no complications to the procedure. She tolerated the procedure well. Explicit postop instructions were given and we will plan to follow the patient up in approximately 1 month. At that point in time, we will follow up on the patient's left lower pole nephrolithiasis, which we did not clearly see on today's fluoroscopy. Metabolic stone workup will also be pursued as well as lifelong urological followup. Win Hansen MD [place]/MODL /[id number] cc: Jorge Delgadillo MD
[2019-05-25 09:20] VITALS: BP 170/95
== END | disposition home or self-care (01) ==
LOC: OR 06:00
PROVIDERS: ATTEND Urology
DX: Z46.6 Encounter for fitting and adjustment of urinary device (principal); N20.0 Calculus of kidney; Z01.812 Encounter for preprocedural laboratory examination; Z01.811 Encounter for preprocedural respiratory examination; Z96.0 Presence of urogenital implants; N81.6 Rectocele; N81.10 Cystocele, unspecified; N95.2 Postmenopausal atrophic vaginitis; Z88.8 Allergy status to other drugs, medicaments and biological substances; Z91.040 Latex allergy status
CPT/HCPCS: 36415 ×2; 52351; 71046; 74018; 74420; 80048; 82948; 85025; C1758; J1100; J1170; J1956; J2001; J2250; J2270; J2405; J2704; J3010; Q9967

== ENCOUNTER → 2023-09-11 | Day surgery (SDC) | payer MEDICARE, OTHER ==
[2023-09-07 08:21] LABS: BASOPHILS # (AUTO) 0.1 (0.0-0.1); BASOPHILS % 0.5 % (0.0-1.0); EOSINOPHILS # (AUTO) 0.2 (0.0-0.4); EOSINOPHILS % 2.4 % (0.0-6.0); HEMATOCRIT 36.4 % (34.2-44.1); HEMOGLOBIN 9.9 g/dL (12.0-16.0); MEAN CORPUSCULAR HEMOGLOBIN 20.2 pg (28-32); MEAN CORPUSCULAR HGB CONC 27.2 g/dL (31-35); MEAN CORPUSCULAR VOLUME 74.4 fL (81-99); MONOCYTES # (AUTO) 0.5 (0.2-0.8); MONOCYTES % 5.1 % (4.4-11.3); NEUTROPHILS # (AUTO) 7.1 (2.1-6.9); NEUTROPHILS % 71.8 % (38.7-80.0); PLATELET COUNT 373 x10e3/uL (140-360); RED BLOOD COUNT 4.89 x10e6/uL (3.6-5.1); RED CELL DISTRIBUTION WIDTH 17.2 % (11.7-14.4); WHITE BLOOD COUNT 9.95 x10e3/uL (4.8-10.8)
[~2023-09-11] MED LIST changes: +ACULAR5 ML OD; +ASPIRIN81 MG PO; -B&O 60MG R/S 60 MG SUPP PR ONE; -DEXAMETHASONE SOD PHOS INJ 4 MG/ML VIAL ONE; -FENTANYL CITRATE/PF 100MCG/2 ML INJ ONE; +FOLIC ACID0.4 MG PO; +HYDROCHLOROTHIA25 MG PO; -HYDROMORPHONE 1MG/1ML INJ ONE; -IOPAMIDOL 300MG/ML 50ML INFUS..BTL IV ONE; +JARDIANCE25 MG PO; +LACTATED RINGER'S 1,000 ML ONE; -LEVOFLOXACIN 500MG/D5W 100ML 100 ML IV ONE; -LIDOCAINE HCL 2% LOCAL INJ 5 ML SDV VIAL INJ ONE; -MIDAZOLAM HCL 2 MG/2 ML VIAL ONE; -MORPHINE SULFATE 2 MG/ML SYR 1ML ONE; +MOXIFLOXACIN3 ML; +MYSOLINE50 MG PO; -ONDANSETRON HCL INJ 2MG/ML 2ML 2 MG/ML VIAL ONE; +PLAVIX75 MG PO; +PREDNISOLONE ACE5 M1; -PROPOFOL IV EMULSION 10 MG/ML 20 ML VIAL ONE; +PROPOFOL IV EMULSION 10 MG/ML 50 ML VIAL IV ONE; -SEVOFLURANE INHAL SOLN 250 ML PEN BTL ONE; +TRULICITY3 MG/0.5 M
[2023-09-11 10:02] VITALS: BP 121/72; PULSE 87; RESP 17; O2SAT 98
== END | disposition home or self-care (01) ==
LOC: ENDO 07:52
PROVIDERS: ATTEND Internal Medicine Gastroenterology
DX: K22.2 Esophageal obstruction (principal); K31.7 Polyp of stomach and duodenum; K29.50 Unspecified chronic gastritis without bleeding; K22.70 Barrett's esophagus without dysplasia; K21.9 Gastro-esophageal reflux disease without esophagitis; K31.89 Other diseases of stomach and duodenum; K44.9 Diaphragmatic hernia without obstruction or gangrene; K63.5 Polyp of colon; D64.9 Anemia, unspecified; E11.9 Type 2 diabetes mellitus without complications; I10 Essential (primary) hypertension; I25.10 Atherosclerotic heart disease of native coronary artery without angina pectoris; E78.5 Hyperlipidemia, unspecified; N20.0 Calculus of kidney; J45.909 Unspecified asthma, uncomplicated; G89.29 Other chronic pain; F41.9 Anxiety disorder, unspecified; Z88.1 Allergy status to other antibiotic agents; Z91.040 Latex allergy status; Z01.812 Encounter for preprocedural laboratory examination; Z79.02 Long term (current) use of antithrombotics/antiplatelets; Z79.82 Long term (current) use of aspirin; Z79.84 Long term (current) use of oral hypoglycemic drugs; Z79.85 Long-term (current) use of injectable non-insulin antidiabetic drugs; Z79.899 Other long term (current) drug therapy; Z95.5 Presence of coronary angioplasty implant and graft
CPT/HCPCS: 36415; 43239; 43450; 85025; 88305; 88313; 88342

== ENCOUNTER → 2023-11-04 | Day surgery (SDC) | payer MEDICARE, OTHER ==
[2023-10-31 10:42] LABS: BASOPHILS # (AUTO) 0.1 (0.0-0.1); BASOPHILS % 0.7 % (0.0-1.0); EOSINOPHILS # (AUTO) 0.2 (0.0-0.4); EOSINOPHILS % 2.6 % (0.0-6.0); HEMATOCRIT 47.5 % (34.2-44.1); HEMOGLOBIN 13.9 g/dL (12.0-16.0); LYMPHOCYTES # (AUTO) 1.8 (1.0-3.2); LYMPHOCYTES % 20.7 % (18.0-39.1); MEAN CORPUSCULAR HEMOGLOBIN 25.2 pg (28-32); MEAN CORPUSCULAR HGB CONC 29.3 g/dL (31-35); MEAN CORPUSCULAR VOLUME 86.1 fL (81-99); MONOCYTES # (AUTO) 0.6 (0.2-0.8); MONOCYTES % 6.5 % (4.4-11.3); NEUTROPHILS # (AUTO) 6.1 (2.1-6.9); NEUTROPHILS % 69.3 % (38.7-80.0); PLATELET COUNT 258 x10e3/uL (140-360); RED BLOOD COUNT 5.52 x10e6/uL (3.6-5.1); RED CELL DISTRIBUTION WIDTH 23.8 % (11.7-14.4); WHITE BLOOD COUNT 8.83 x10e3/uL (4.8-10.8)
[~2023-11-04] MED LIST changes: +FENTANYL CITRATE/PF 100MCG/2 ML INJ ONE; +GLUCAGON FOR INJ 1 MG VIAL ONE; +HYOSCYAMINE SULFATE 0.5 MG/ML INJ ONE; -LACTATED RINGER'S 1,000 ML ONE; +LIDOCAINE HCL 2% LOCAL INJ 5 ML SDV VIAL INJ ONE; +PROPOFOL IV EMULSION 10 MG/ML 20 ML VIAL ONE; -PROPOFOL IV EMULSION 10 MG/ML 50 ML VIAL IV ONE
[2023-11-04] MEDS: LACTATED RINGER'S 1,000 ML ONE (09:04)
[2023-11-04 12:35] VITALS: BP 109/78; PULSE 74; RESP 16; TEMP 97.6; O2SAT 96
== END | disposition home or self-care (01) ==
LOC: OR 08:51
PROVIDERS: ATTEND Internal Medicine Gastroenterology
DX: D64.9 Anemia, unspecified (principal); Z86.010 Personal history of colon polyps; K57.30 Diverticulosis of large intestine without perforation or abscess without bleeding; K64.8 Other hemorrhoids; K29.70 Gastritis, unspecified, without bleeding; K31.A0 Gastric intestinal metaplasia, unspecified; K21.9 Gastro-esophageal reflux disease without esophagitis; K44.9 Diaphragmatic hernia without obstruction or gangrene; Z71.3 Dietary counseling and surveillance; I25.10 Atherosclerotic heart disease of native coronary artery without angina pectoris; I10 Essential (primary) hypertension; Z71.89 Other specified counseling; E11.9 Type 2 diabetes mellitus without complications; J45.909 Unspecified asthma, uncomplicated; F41.9 Anxiety disorder, unspecified; Z88.1 Allergy status to other antibiotic agents; Z91.040 Latex allergy status; Z01.812 Encounter for preprocedural laboratory examination; Z79.4 Long term (current) use of insulin; Z79.85 Long-term (current) use of injectable non-insulin antidiabetic drugs; Z79.84 Long term (current) use of oral hypoglycemic drugs; Z79.1 Long term (current) use of non-steroidal anti-inflammatories (NSAID); Z79.02 Long term (current) use of antithrombotics/antiplatelets; Z79.82 Long term (current) use of aspirin; Z79.899 Other long term (current) drug therapy; Z68.30 Body mass index [BMI] 30.0-30.9, adult; Z98.1 Arthrodesis status
CPT/HCPCS: 36415; 45378; 85025; J1610; J1980; J2001; J2704; J3010; J7121

== ENCOUNTER → 2023-11-30 | Outpatient (REF) | payer MEDICARE, OTHER ==
[~2023-11-30] MED LIST changes: -FENTANYL CITRATE/PF 100MCG/2 ML INJ ONE; -GLUCAGON FOR INJ 1 MG VIAL ONE; -HYOSCYAMINE SULFATE 0.5 MG/ML INJ ONE; -LIDOCAINE HCL 2% LOCAL INJ 5 ML SDV VIAL INJ ONE; -PROPOFOL IV EMULSION 10 MG/ML 20 ML VIAL ONE
== END ==
LOC: DX 08:29
PROVIDERS: ATTEND Nurse Practitioner
DX: D64.9 Anemia, unspecified (principal)
CPT/HCPCS: 74250